=== PATIENT | female | born 1945 ===

== ENCOUNTER 2018-05-15 20:03 | Emergency (ER) | payer MEDICARE, MEDICAID ==
[~2018-05-15] VITALS: Ht 160 cm; Wt 88.0 kg
[2018-05-15] MEDS ORDERED: FAMOTIDINE 20 MG TABLET ONE (20:23)
[2018-05-15] MEDS ORDERED: PLEASE ENTER HEIGHT AND WEIGHT MC SCH (20:30)
[2018-05-15] MEDS ORDERED: PLEASE ENTER ALLERGIES MC SCH (20:30)
[2018-05-15] MEDS ORDERED: FAMOTIDINE 20 MG TABLET PO ONE (20:30)
[2018-05-15] MEDS ORDERED: DIPHENHYDRAMINE 25 MG CAPSULE PO ONE (20:30)
--- NOTE | 2018-05-15 21:19 | NUR ---
report taken from ADALID Mitchell. pt resting on gurney, resps even and unlabored. all monitors in place, nsr on ekg monitor tech with no ectopy. pt requesting discharge. family at bedside.
--- NOTE | 2018-05-15 22:00 | NUR ---
pt sitting in [facility]. pt aox4. resps even and unlabored. call light within reach. family at bedside. awaiting dc.
[2018-05-15 22:06] VITALS: BP 154/65
--- NOTE | 2018-05-15 22:14 | NUR ---
pt given dc instructions and script. pt educated regarding dc medication which is benadryl. pt aox4. neuro intact. pt amb to dc with steady gait. no acute distress at dc. Addendum: 05/16/18 at 0007 by PHONG pt given dc instructions and script. pt educated regarding dc medication which is benadryl. pt aox4. resps even and unlabored. no n/v. neuro intact. pt amb to dc with steady gait. no acute distress at dc.
== END 2018-05-15 22:08 | disposition home or self-care (01) ==
LOC: ED 20:42
DX: T78.1XXA Other adverse food reactions, not elsewhere classified, initial encounter (principal); R21 Rash and other nonspecific skin eruption; X58.XXXA Exposure to other specified factors, initial encounter; I10 Essential (primary) hypertension
CPT/HCPCS: 99283; J7512

== ENCOUNTER 2018-09-25 18:12 | Emergency (ER) | payer MEDICARE, MEDICAID ==
[~2018-09-25] VITALS: Ht 160 cm; Wt 84.0 kg
--- NOTE | 2018-09-25 18:57 | NUR ---
PATIENT PRESENTS TO ED TODAY FOR EPIGASTRIC PAIN RADIATING TO RT FLANK AND NAUSEA SINCE APRIL. "GETTING WORSE AND WORSE". LABS DRAWN, AWAITING IV START FOR CT. NAD NOTED. CALL LIGHT WITHIN REACH.
[2018-09-25] MEDS ORDERED: LISI2.5T PO (19:00)
[2018-09-25] MEDS ORDERED: SODIUM CHLORIDE FLUSH 10ML SYR IVF ONE (19:00)
[2018-09-25 19:01] LABS: BASOPHILS # (AUTO) 0.12 x10^3/uL (0-0.1); BASOPHILS % (AUTO) 1 % (0-1); EOSINOPHILS # (AUTO) 0.31 x10^3/uL (0-0.4); EOSINOPHILS % (AUTO) 3 % (1-7); LYMPHOCYTES # (AUTO) 2.73 x10^3/uL (1-3.4); LYMPHOCYTES % (AUTO) 22 % (22-44); MD NO; MEAN CORPUSCULAR HEMOGLOBIN 31.3 pg (27.0-34.8); MEAN CORPUSCULAR HGB CONC 33.6 g/dL (32.4-35.8); MEAN CORPUSCULAR VOLUME 93.4 fL (80-100); MEAN PLATELET VOLUME 7.9 fL (7.4-10.4); MONOCYTES # (AUTO) 0.47 x10^3/uL (0.2-0.8); MONOCYTES % (AUTO) 4 % (2-9); NEUTROPHILS # (AUTO) 8.67 x10^3/uL (1.8-6.8); NEUTROPHILS % (AUTO) 71 % (42-75); PLATELET COUNT 306 x10^3/uL (130-400); RED CELL DISTRIBUTION WIDTH 13.3 % (9.6-15.2)
[2018-09-25 19:10] LABS: ALANINE AMINOTRANSFERASE 17 U/L (12-78); ANION GAP 6 mmol/L (5-15); CHLORIDE 106 mmol/L (98-107); CREATININE 0.95 mg/dL (0.55-1.02)
[2018-09-25 19:12] LABS: ALKALINE PHOSPHATASE 111 U/L (45-117); BILIRUBIN,TOTAL 0.6 mg/dL (0.2-1.0); TOTAL PROTEIN 7.9 g/dL (6.4-8.2)
[2018-09-25] MEDS ORDERED: ONDANSETRON 2MG/ML, 2ML ONE (19:21)
--- NOTE | 2018-09-25 19:23 | NUR ---
PATIENT TO CT VIA [id number].
--- NOTE | 2018-09-25 19:24 | NUR ---
PATIENT REPORTS NAUSEA, MD AWARE. ZOFRAN ADMINISTERED PER ORDER.
[2018-09-25] MEDS ORDERED: ONDANSETRON 2MG/ML, 2ML IVPush ONE (19:30)
--- NOTE | 2018-09-25 19:47 | NUR ---
RESULTS BACK, CHART UP FOR RECHECK.
[2018-09-25] MEDS ORDERED: OMNIPAQUE 350 MG/ML, 100ML BOTTLE ONE (20:10)
[2018-09-25 20:29] VITALS: BP 141/63
[2018-09-25] MEDS ORDERED: METOCLOPRAMIDE 10MG TABLET PO ONE (20:30)
[2018-09-25] MEDS ORDERED: KETOROLAC 30 MG/1 ML IM ONE (20:30)
[2018-09-25] MEDS ORDERED: DIPHENHYDRAMINE 25 MG CAPSULE PO ONE (20:30)
--- NOTE | 2018-09-25 20:56 | NUR ---
Patient/Caregiver given discharge instructions and they have confirmed that they understand the instructions. Patient ambulatory with steady gait.
== END 2018-09-25 21:07 | disposition home or self-care (01) ==
LOC: ED 20:50
DX: R10.13 Epigastric pain (principal); R10.11 Right upper quadrant pain; I10 Essential (primary) hypertension; Z90.49 Acquired absence of other specified parts of digestive tract
CPT/HCPCS: 36415; 74177; 80053; 83690; 85025; 93005; 96374; 99284; J2405; Q9967